=== PATIENT | male | born 1980 | race Caucasian/White ===

== ENCOUNTER 2019-11-20 10:47 | Emergency (ER) | payer OTHER ==
[~2019-11-20] VITALS: Ht 170.2 cm; Wt 116.1 kg
[2019-11-20 11:10] VITALS: Ht 170.2 cm; Wt 116.1 kg
[2019-11-20 12:32] VITALS: BP 123/74
== END 2019-11-20 14:29 | disposition home or self-care (01) ==
LOC: ED 10:47
DX: S29.012A Strain of muscle and tendon of back wall of thorax, initial encounter (principal); S16.1XXA Strain of muscle, fascia and tendon at neck level, initial encounter; M54.12 Radiculopathy, cervical region; V89.2XXA Person injured in unspecified motor-vehicle accident, traffic, initial encounter; Y93.I9 Activity, other involving external motion; Y92.488 Other paved roadways as the place of occurrence of the external cause; Y99.8 Other external cause status
CPT/HCPCS: J1885